=== PATIENT | female | born 1960 | race Caucasian/White ===

== ENCOUNTER 2017-11-06 15:47 | Emergency (ER) | payer OTHER ==
[2017-11-06 16:32] LABS: Protime INR 0.99
[2017-11-06 16:36] LABS: Absolute Lymphocytes (CBC) 2.4 K/uL (0.7-4.9); Absolute Monocytes 0.6 K/uL (0.1-1.3); Absolute Neutrophil 4.5 K/uL (1.8-8.0); Basophils % 0.5 % (0-1.3); Eosinophils % 1.5 % (0-4.4); Hematocrit 37.8 % (36.0-45.0); Lymphocytes % 31.4 % (15.3-44.8); MCH 30.9 pg (27.0-35.0); MCV 89.2 fL (80-100); MPV 7.8 fL (7.6-11.3); Monocytes % 7.4 % (3.3-12.3); RBC Red Blood Cell Count 4.24 M/uL (3.86-4.86)
[2017-11-06 16:38] LABS: Potassium 3.7 mmol/L (3.5-5.1)
--- NOTE | 2017-11-06 16:57 | RAD REPORT ---
EXAM DESCRIPTION: RAD - Chest Single View - 11/06/2017 4:25 pm CLINICAL HISTORY: Upper chest and upper extremity pain and weakness COMPARISON: None. TECHNIQUE: AP portable chest image was obtained 1612 hours . FINDINGS: Lungs are clear. Heart and vasculature are normal. No measurable pleural effusion and no p neumothorax. No gross bony abnormality seen. No acute aortic findings suspected. IMPRESSION: No acute cardiopulmonary process.
--- NOTE | 2017-11-06 16:58 | RAD REPORT ---
EXAM DESCRIPTION: CT - Head Brain Wo Cont - 11/06/2017 4:27 pm CLINICAL HISTORY: Slurred speech, upper extremity numbness and tingling COMPARISON: None. TECHNIQUE: Axial 5 mm thick images of the head were obtained without IV contrast. All CT scans are performed using dose optimization technique as appropriate and may include automated exposure control or mA/KV adjustment according to patient size. FINDINGS: No intracranial hemorrhage, mass, edema or shift of mid-line structures. No acute infarcti on changes seen. No abnormal extra-axial fluid collections. Ventricles are normal. Mastoid air cells and visualized portions of the paranasal sinuses are clear. No acute bony findings. IMPRESSION: Negative non-contrast CT head examination.
[2017-11-06 17:18] LABS: Urine Blood TRACE (NEG); Urine Glucose NEGATIVE (NEG); Urine Protein NEGATIVE (NEG); Urine Specific Gravity 1.015 (1.005-1.030)
[2017-11-06 17:20] LABS: Urine Bacteria <20 /HPF (<20); Urine Culture Reflex Order NOT NEEDED; Urine Mucus SLIGHT /HPF (NONE SEEN); Urine RBC <5 /HPF (NONE SEEN)
--- NOTE | 2017-11-06 17:37 | ER ---
Nurse's Notes [facility] Name: Marya Garcia Age: 57 yrs Sex: Female : 1960 Arrival Date: 11/06/2017 Time: 15:50 Bed 3 Private MD: Rao Toney Diagnosis: Weakness;Dystonia, unspecified Presentation: 11/06 15:56 Presenting complaint: Patient states: Reports speech slurring and bilateral shooting aj pain in arms at 1415 that has resolved currently. Patient denies numbness or tingling. Family reports speech was significantly slurred. Transition of care: patient was not received from another setting of care. Onset of symptoms was November 06, 2017 at 14:45. Risk Assessment: Do you want to hurt yourself or someone else? Patient reports no desire to harm self or others. Initial Sepsis Screen: Does the patient meet any 2 criteria? No. Patient's initial sepsis screen is negative. Does the patient have a suspected source of infection? No. Patient's initial sepsis screen is negative. Care prior to arrival: None. 15:56 Method Of Arrival: Wheelchair 15:56 Acuity: EMRE 2 Triage Assessment: 15:59 General: Appears in no apparent distress. comfortable, Behavior is calm, cooperative, aj appropriate for age. Pain: Complains of pain in right arm and left arm. Neuro: Level of Consciousness is awake, alert, obeys commands, Oriented to person, place, time, situation, Appropriate for age Rope Coiling Machine Operator are equal bilaterally Moves all extremities. Full function Gait is steady, Speech is normal, Facial symmetry appears normal, Pupils are PERRLA, Intact Reports slurred speech. Respiratory: Airway is patent Respiratory effort is even, unlabored, Respiratory pattern is regular, symmetrical. Derm: Skin is intact, is healthy with good turgor, Skin is pink, warm \T\ dry. normal. 17:48 Pain: Also complains of. Historical: - Allergies: 15:59 No Known Allergies; aj - Home Meds: 15:59 embril [Active]; Benicar oral oral [Active]; aj - PMHx: 15:59 Rheumatoid Arthritis; Hypertension; aj - PSHx: 15:59 Knee surgery; Hip; aj - Immunization history:: Adult Immunizations up to date. - Social history:: Smoking status: Patient/guardian denies using tobacco. - Ebola Screening: : Patient negative for fever greater than or equal to 101.5 degrees Fahrenheit, and additional compatible Ebola Virus Disease symptoms Patient denies exposure to infectious person Patient denies travel to an Ebola-affected area in the 21 days before illness onset No symptoms or risks identified at this time. Screenin:01 Abuse screen: Denies threats or abuse. Denies injuries from another. Nutritional ch screening: No deficits noted. Tuberculosis screening: No symptoms or risk factors identified. Fall Risk None identified. Assessment: 16:23 Reassessment: pt transported to OR via wheelchair. ch 16:23 Reassessment: Patient appears in no apparent distress at this time. Patient and/or ch family updated on plan of care and expected duration. Pain level reassessed. Patient is alert, oriented x 3, equal unlabored respirations, skin warm/dry/pink. Pain: Denies pain. Neuro: No deficits noted. Respiratory: Airway is patent Respiratory effort is even, unlabored, Breath sounds are clear bilaterally. GI: No signs and/or symptoms were reported involving the gastrointestinal system. Abdomen is round. Derm: No signs and/or symptoms reported regarding the dermatologic system. Skin is pink, warm \T\ dry. 17:21 Reassessment: Patient appears in no apparent distress at this time. Patient and/or ch family updated on plan of care and expected duration. Pain level reassessed. Patient is alert, oriented x 3, equal unlabored respirations, skin warm/dry/pink. Patient denies pain at this time. Patient states feeling better. Patient states symptoms have improved. 17:45 General: Appears in no apparent distress. comfortable, Behavior is calm, cooperative, ch appropriate for age. Vital Signs: 15:59 BP 187 / 89; Pulse 81; Resp 17; Temp 97.9; Pulse Ox 98% on R/A; Weight 107.05 kg; aj Height 5 ft. 7 in. (170.18 cm) (R); 17:21 BP 137 / 75; Pulse 65; Resp 18; Temp 98.3; Pulse Ox 99% on R/A; Pain 0/10; ch 17:45 BP 135 / 74; Pulse 70; Resp 18; Temp 98.; Pulse Ox 99% on R/A; Pain 0/10; ch 15:59 Body Mass Index 36.96 (107.05 kg, 170.18 cm) aj NIH Stroke Scale Scores: 16:01 NIHSS Score: 0 ED Course: 15:50 Patient arrived in ED. sb2 15:51 Rao Toney MD is Private Physician. sb2 15:53 Santi Watson MD is Attending Physician. kdr 15:57 Triage completed. aj 15:59 Arm band placed on left wrist. Patient placed in an exam room, on a stretcher. aj 16:01 Radha Patel, STEVO is Primary Nurse. ch 16:01 Patient has correct armband on for positive identification. Placed in gown. Bed in low ch position. Call light in reach. Side rails up X 1. Adult w/ patient. school bus monitor on. Pulse ox on. NIBP on. 16:01 No provider procedures requiring assistance completed. Inserted saline lock: 20 gauge ch in right antecubital area, using aseptic technique. Blood collected. 16:09 EKG done, by testing tech. reviewed by Santi Watson MD. dt2 16:24 Stroke CXR 1 View In Process Unspecified. EDMS 16:25 X-ray completed. Portable x-ray completed in exam room. Patient tolerated procedure az well. 16:27 CT Head Brain wo Cont In Process Unspecified. EDMS 17:36 Rao Toney MD is Referral Physician. kdr 17:45 No apparent distress. Resting quietly. ch 17:45 IV discontinued, intact, bleeding controlled, No redness/swelling at site. Pressure ch dressing applied. Administered Medications: No medications were administered Point of Care Testing: Blood Glucose: 16:01 Blood Glucose: 108 mg/dL; Ranges: Outcome: 17:36 Discharge ordered by . kdr 17:45 Discharged to home ambulatory, with family. ch 17:45 Condition: stable 17:45 Discharge instructions given to patient, family, Instructed on discharge instructions, follow up and referral plans. Demonstrated understanding of instructions, follow-up care. 17:48 Patient left the ED. NIH Stroke Scale - NIH Stroke Score Date: 11/06/2017 Time: 16:01 Total Score = 0 1a. Level of Consciousness (LOC) - 0(Alert) 1b. Level of Consciousness (LOC) (Year \T\ Age) - 0(Both) 1c. LOC Commands (Open \T\ Closes Eyes/Marble Helper) - 0(Both) 2. Best Gaze (Lateral Gaze Paresis) - 0(Normal) 3. Visual Field Loss - 0(No visual loss) 4. Facial Palsy - 0(Normal) 5a. Left Arm: Motor (10-second hold) - 0(No drift) 5b. Right Arm: Motor (10-second hold) - 0(No drift) 6a. Left Leg: Motor (5-second hold - always test supine) - 0(No drift) 6b. Right Leg: Motor (5-second hold - always test supine) - 0(No drift) 7. Limb Ataxia (finger/nose \T\ heel/salinas - test with eyes open) - 0(Absent) 8. Sensory Loss (pinprick arms/legs/face) - 0(Normal) 9. Best Language: Aphasia (description/naming/reading) - 0(No aphasia) 10. Dysarthria (speech clarity - read or repeat words) - 0(Normal) 11. Extinction and Inattention (visual/tactile/auditory/spatial/personal) - 0(No abnormality) Initials: Signatures: Dispatcher [employer] Radha Stevens, RN Maylin Baldwin ch, RN RN aj Rittger, Kevin, MD MD kdr Billeau, Sheri sb2 Teague, Danielle dt2 Zavala, Araceli az Corrections: (The following items were deleted from the chart) 16:00 15:59 Neuro: Level of Consciousness is awake, alert, obeys commands, Oriented aj to person, place, time, situation, Appropriate for age Rope Coiling Machine Operator are equal bilaterally Moves all extremities. Full function Gait is steady, Speech is normal, Facial symmetry appears normal, Pupils are PERRLA, Reports slurred speech. 16:01 15:59 Arm band placed on left wrist. Patient placed in waiting room, aj aj
--- NOTE | 2017-11-06 17:37 | EDPHYS ---
Physician Documentation [facility] Name: Marya Garcia Age: 57 yrs Sex: Female : 1960 Arrival Date: 11/06/2017 Time: 15:50 Bed 3 Private MD: Rao Toney ED Physician Santi Watson HPI: 11/06 17:18 This 57 yrs old Female presents to ER via Wheelchair with complaints of kdr Vision Problem, Numbness Of Arm, Headache. 17:19 The patient was sitting at her computer and had sudden onset of shooting pain in both kdr arms causing her to try and withdraw her arms close to her body. She states that temporarily she could not move her arms/hands forward to the keyboard. Her co-worker noted that her speech was somewhat garbled. This lasted for a brief period, maybe a minute or two and then resolved. She states that she has been under a lot of stress lately and very little sleep for the last few nights. She has not had this before. Onset: The symptoms/episode began/occurred suddenly, just prior to arrival. Severity of symptoms: At their worst the symptoms were mild moderate just prior to arrival, in the emergency department the symptoms have resolved. The patient has not experienced similar symptoms in the past. The patient has not recently seen a physician. Historical: - Allergies: 15:59 No Known Allergies; aj - Home Meds: 15:59 embril [Active]; Benicar oral oral [Active]; aj - PMHx: 15:59 Rheumatoid Arthritis; Hypertension; aj - PSHx: 15:59 Knee surgery; Hip; aj - Immunization history:: Adult Immunizations up to date. - Social history:: Smoking status: Patient/guardian denies using tobacco. - Ebola Screening: : Patient negative for fever greater than or equal to 101.5 degrees Fahrenheit, and additional compatible Ebola Virus Disease symptoms Patient denies exposure to infectious person Patient denies travel to an Ebola-affected area in the 21 days before illness onset No symptoms or risks identified at this time. ROS: 17:19 Constitutional: Negative for fever, chills, and weight loss, Eyes: Negative for injury, kdr pain, redness, and discharge, ENT: Negative for injury, pain, and discharge, Neck: Negative for injury, pain, and swelling, Cardiovascular: Negative for chest pain, palpitations, and edema, Respiratory: Negative for shortness of breath, cough, wheezing, and pleuritic chest pain, Abdomen/GI: Negative for abdominal pain, nausea, vomiting, diarrhea, and constipation, Back: Negative for injury and pain, MS/Extremity: Negative for injury and deformity, Skin: Negative for injury, rash, and discoloration, Neuro: Negative for headache, weakness, numbness, tingling, and seizure activity. Psych: Negative for depression, anxiety, suicide ideation, homicidal ideation, and hallucinations, Allergy/Immunology: Negative for hives, rash, and allergies, Endocrine: Negative for neck swelling, polydipsia, polyuria, polyphagia, and marked weight changes, Hematologic/Lymphatic: Negative for swollen nodes, abnormal bleeding, and unusual bruising. Exam: 17:19 Constitutional: This is a well developed, well nourished patient who is awake, alert, kdr and in no acute distress. Head/Face: Normocephalic, atraumatic. Eyes: Pupils equal round and reactive to light, extra-ocular motions intact. Lids and lashes normal. Conjunctiva and sclera are non-icteric and not injected. Cornea within normal limits. Periorbital areas with no swelling, redness, or edema. Neck: Trachea midline, no thyromegaly or masses palpated, and no cervical lymphadenopathy. Supple, full range of motion without nuchal rigidity, or vertebral point tenderness. No Meningismus. Chest/axilla: Normal chest wall appearance and motion. Nontender with no deformity. No lesions are appreciated. Cardiovascular: Regular rate and rhythm with a normal S1 and S2. No gallops, murmurs, or rubs. Normal PMI, no JVD. No pulse deficits. Respiratory: Lungs have equal breath sounds bilaterally, clear to auscultation and percussion. No rales, rhonchi or wheezes noted. No increased work of breathing, no retractions or nasal flaring. Abdomen/GI: Soft, non-tender, with normal bowel sounds. No distension or tympany. No guarding or rebound. No evidence of tenderness throughout. Back: No spinal tenderness. No costovertebral tenderness. Full range of motion. Skin: Warm, dry with normal turgor. Normal color with no rashes, no lesions, and no evidence of cellulitis. MS/ Extremity: Pulses equal, no cyanosis. Neurovascular intact. Full, normal range of motion. Neuro: Awake and alert, GCS 15, oriented to person, place, time, and situation. Cranial nerves II-XII grossly intact. Motor strength 5/5 in all extremities. Sensory grossly intact. Cerebellar exam normal. Normal gait. Psych: Awake, alert, with orientation to person, place and time. Behavior, mood, and affect are within normal limits. Vital Signs: 15:59 BP 187 / 89; Pulse 81; Resp 17; Temp 97.9; Pulse Ox 98% on R/A; Weight 107.05 kg; aj Height 5 ft. 7 in. (170.18 cm) (R); 17:21 BP 137 / 75; Pulse 65; Resp 18; Temp 98.3; Pulse Ox 99% on R/A; Pain 0/10; ch 17:45 BP 135 / 74; Pulse 70; Resp 18; Temp 98.; Pulse Ox 99% on R/A; Pain 0/10; ch 15:59 Body Mass Index 36.96 (107.05 kg, 170.18 cm) NIH Stroke Scale Scores: 16:01 NIHSS Score: 0 ch MDM: 17:19 Data reviewed: vital signs, nurses notes, lab test result(s), radiologic studies. kdr Counseling: I had a detailed discussion with the patient and/or guardian regarding: the historical points, exam findings, and any diagnostic results supporting the discharge/admit diagnosis, lab results, radiology results. ED course: The patient would like to go home and follow-up with Dr. Toney/Neurology. 17:36 Patient medically screened. kdr 11/06 16:05 Order name: Basic Metabolic Panel kdr 11/06 16:05 Order name: CBC with Diff; Complete Time: 17:17 kdr 11/06 16:05 Order name: Protime (+inr); Complete Time: 17:17 kdr 11/06 16:05 Order name: Ptt, Activated; Complete Time: 17:17 kdr 11/06 16:05 Order name: Urine Microscopic Only kdr 11/06 16:05 Order name: Basic Metabolic Panel; Complete Time: 17:17 EDMS 11/06 16:05 Order name: Stroke CXR 1 View; Complete Time: 17:17 kdr 11/06 16:05 Order name: EKG; Complete Time: 16:06 kdr 11/06 16:05 Order name: Accucheck; Complete Time: 16:59 kdr 11/06 16:05 Order name: Cardiac monitoring; Complete Time: 16:59 kdr 11/06 16:05 Order name: EKG - Nurse/Tech; Complete Time: 16:59 [facility] 11/06 16:05 Order name: CT Head Brain wo Cont; Complete Time: 17:17 kdr 11/06 17:11 Order name: Urine Dipstick--Ancillary (enter results) eb 11/06 17:44 Order name: Glucose, Ancillary Testing [facility] 11/06 16:05 Order name: IV Saline Lock; Complete Time: 16:59 kdr 11/06 16:05 Order name: Labs collected and sent; Complete Time: 16:59 [facility] 11/06 16:05 Order name: NPO; Complete Time: 16:59 [facility] 11/06 16:05 Order name: O2 Per Protocol; Complete Time: 16:59 [facility] 11/06 16:05 Order name: O2 Sat Monitoring; Complete Time: 16:59 [facility] 11/06 16:05 Order name: Stroke Swallow Screen; Complete Time: 17:00 [facility] 11/06 16:05 Order name: Urine Dipstick-Ancillary (obtain specimen) kdr Administered Medications: No medications were administered Point of Care Testing: Blood Glucose: 16:01 Blood Glucose: 108 mg/dL; ch Ranges: Critical Glucose Levels:Adult <50 mg/dl or >400 mg/dl <40 mg/dl or >180 mg/dl Disposition: 11/06/17 17:36 Discharged to Home. Impression: Weakness, Dystonia, unspecified. - Condition is Stable. - Discharge Instructions: Dystonia. - Medication Reconciliation Form, Thank You Letter form. - Follow up: Rao Toney MD; When: 2 - 3 days; Reason: If symptoms return, Further diagnostic work-up, Recheck today's complaints, Continuance of care, Re-evaluation by your physician. - Problem is new. - Symptoms are resolved. NIH Stroke Scale - NIH Stroke Score Date: 11/06/2017 Time: 16:01 Total Score = 0 1a. Level of Consciousness (LOC) - 0(Alert) 1b. Level of Consciousness (LOC) (Year \T\ Age) - 0(Both) 1c. LOC Commands (Open \T\ Closes Eyes/Gear Design Engineer) - 0(Both) 2. Best Gaze (Lateral Gaze Paresis) - 0(Normal) 3. Visual Field Loss - 0(No visual loss) 4. Facial Palsy - 0(Normal) 5a. Left Arm: Motor (10-second hold) - 0(No drift) 5b. Right Arm: Motor (10-second hold) - 0(No drift) 6a. Left Leg: Motor (5-second hold - always test supine) - 0(No drift) 6b. Right Leg: Motor (5-second hold - always test supine) - 0(No drift) 7. Limb Ataxia (finger/nose \T\ heel/salinas - test with eyes open) - 0(Absent) 8. Sensory Loss (pinprick arms/legs/face) - 0(Normal) 9. Best Language: Aphasia (description/naming/reading) - 0(No aphasia) 10. Dysarthria (speech clarity - read or repeat words) - 0(Normal) 11. Extinction and Inattention (visual/tactile/auditory/spatial/personal) - 0(No abnormality) Initials: ch Signatures: Dispatcher [employer] EDRadha Melara RN Maylin Baldwin ch, RN RN Santi Lopez MD MD [facility] Corrections: (The following items were deleted from the chart) 17:48 17:36 11/06/2017 17:36 Discharged to Home. Impression: Weakness; Dystonia, ch unspecified. Condition is Stable. Forms are Medication Reconciliation Form, Thank You Letter, Antibiotic Education, Prescription Opioid Use. Follow up: Rao Toney; When: 2 - 3 days; Reason: If symptoms return, Further diagnostic work-up, Recheck today's complaints, Continuance of care, Re-evaluation by your physician. Problem is new. Symptoms are resolved. kdr
--- NOTE | 2017-11-07 09:49 | EKG ---
Test Date: 2017-11-06 Test Time: 16:03:18 Chief Talent Officer: KEN MEASUREMENT RESULTS: Intervals: Rate: 62 MT: 150 QRSD: 88 QT: 422 QTc: 428 [place]: P: 62 MT: 150 QRS: 18 T: 65 INTERPRETIVE STATEMENTS: Normal sinus rhythm Normal ECG No previous ECG available for comparison Electronically Signed On 11-07-17 02:14:28 CDT by Jeremy Whitehead
== END 2017-11-06 17:48 | disposition home or self-care (01) ==
LOC: ER 15:47
DX: G24.9 Dystonia, unspecified (principal); I10 Essential (primary) hypertension
CPT/HCPCS: 36415; 70450; 71045; 80048; 81003; 81015; 82962; 85025; 85610; 85730; 93005; 99284